=== PATIENT | male | born 1970 | race Caucasian/White ===

== ENCOUNTER 2022-10-13 10:56 | Outpatient (CLI) | payer OTHER, SELFPAY | END 2022-10-13 10:57 | disposition home or self-care (01) | PROVIDERS: PCP Family Medicine; Visit Provider Family Medicine | DX: Z00.00 Encounter for general adult medical examination without abnormal findings (principal); M25.562 Pain in left knee; Z13.6 Encounter for screening for cardiovascular disorders; Z12.5 Encounter for screening for malignant neoplasm of prostate | CPT/HCPCS: 80053; 80061; 84153 ==

== ENCOUNTER 2022-10-23 11:48 | Outpatient (CLI) | payer OTHER, SELFPAY ==
--- NOTE | 2022-10-23 08:26 | W.ANESCHARGE ---
Anesthesia Charges Start Date/Time Anesthesia Start Date: 10/23/22 Anesthesia Start Time: 13:08 Stop Date/Time Anesthesia Stop Date: 10/23/22 Anesthesia Stop Time: 13:32
--- NOTE | 2022-10-23 13:33 | W.ANESCHARGE ---
Anesthesia Charges Start Date/Time Anesthesia Start Date: 10/23/22 Anesthesia Start Time: 13:08 Stop Date/Time Anesthesia Stop Date: 10/23/22 Anesthesia Stop Time: 13:32
== END 2022-10-23 11:49 | disposition home or self-care (01) ==
LOC: OP CLINIC 11:49
PROVIDERS: PCP Family Medicine; Visit Provider Internal Medicine
DX: Z12.11 Encounter for screening for malignant neoplasm of colon (principal)
CPT/HCPCS: 45378; 811; 812; J2704